=== PATIENT | female | born 1985 | race Caucasian/White ===

== ENCOUNTER 2020-04-23 19:11 | Emergency (ER) | payer MEDICAID ==
[~2020-04-23] VITALS: Ht 167.6 cm; Wt 113.6 kg
[~2020-04-23 19:11] MED LIST: CYCL-1 PO
[2020-04-23 19:24] VITALS: BP 148/98
[2020-04-23] MEDS ORDERED: prednisone 10mg tablet PO STA (19:27)
[2020-04-23] MEDS ORDERED: PRED20TA PO (19:31)
[2020-04-23] MEDS ORDERED: TRIA15CR61 TOP (19:31)
[2020-04-23] MEDS ORDERED: predniSONE 20 mg tablet PO STA (19:43)
== END 2020-04-23 19:49 | disposition home or self-care (01) ==
LOC: ER 19:11
DX: L25.9 Unspecified contact dermatitis, unspecified cause (principal); G47.30 Sleep apnea, unspecified; G89.29 Other chronic pain; Z79.899 Other long term (current) drug therapy
CPT/HCPCS: 99283; J7512

== ENCOUNTER 2020-09-27 08:55 | Emergency (ER) | payer MEDICAID ==
[~2020-09-27] VITALS: Ht 167.6 cm; Wt 118.2 kg
[2020-09-27 09:12] VITALS: BP 129/79
[2020-09-27] MEDS ORDERED: dexamethasone sod phosphate 10mg/ml inj PO STA (09:49)
[2020-09-27] MEDS ORDERED: ketorolac tromethamine 15mg/ml inj. IM ONE (09:50)
[2020-09-27] MEDS ORDERED: PENI500T2 PO (10:32)
--- NOTE | 2020-09-27 10:40 | NUR ---
Patient seen and assessed by provider.
== END 2020-09-27 10:47 | disposition home or self-care (01) ==
LOC: ER 09:00
DX: J02.0 Streptococcal pharyngitis (principal); G89.29 Other chronic pain; G47.30 Sleep apnea, unspecified; Z79.899 Other long term (current) drug therapy; Z86.16 Personal history of COVID-19
CPT/HCPCS: 87880; 96372; 99283; J1100; J1885

== ENCOUNTER 2021-09-25 16:16 | Emergency (ER) | payer MEDICAID ==
[~2021-09-25] VITALS: Ht 167.6 cm; Wt 118.2 kg
[2021-09-25 16:18] VITALS: BP 136/93
[2021-09-25] MEDS ORDERED: ketorolac tromethamine 15mg/ml inj. IM ONE (16:50)
[2021-09-25] MEDS ORDERED: HYDROcodone/acetaminophen 10/325mg tab PO ONE (16:50)
[2021-09-25] MEDS ORDERED: CYCL-1 PO (16:59)
[2021-09-25] MEDS ORDERED: IBUP-1984 PO (16:59)
== END 2021-09-25 17:16 | disposition home or self-care (01) ==
LOC: ER 16:17
DX: M54.42 Lumbago with sciatica, left side (principal); G89.29 Other chronic pain; Z98.890 Other specified postprocedural states; Z79.899 Other long term (current) drug therapy
CPT/HCPCS: 96372; 99283; J1885